=== PATIENT | female | born 1970 | race Caucasian/White ===

== ENCOUNTER → 2017-07-31 | Outpatient (CLI) | payer BC ==
--- NOTE | 2017-07-31 12:59 | Diagnostic Imaging Report ---
INDICATION: Shoulder pain. COMPARISON: None. FINDINGS: Three views of the left shoulder were obtained. There is no fracture, dislocation, or other acute bony abnormality identified. The soft tissues appear unremarkable. No radiopaque foreign bodies identified. The visualized portions of the left lung are clear. IMPRESSION: No acute fractures or dislocations of the left shoulder. Dictated by: Dictated on workstation # [id number]
== END ==
LOC: RAD 12:18
PROVIDERS: ATTEND Internal Medicine
DX: S49.92XA Unspecified injury of left shoulder and upper arm, initial encounter (principal)
CPT/HCPCS: 73030

== ENCOUNTER → 2017-08-13 | Outpatient (CLI) | payer BC ==
--- NOTE | 2017-08-13 12:17 | Diagnostic Imaging Report ---
PROCEDURE: MRI left upper extremity without contrast. TECHNIQUE: A multiplanar/multisequence non contrast-enhanced MRI of the left upper extremity was accomplished. INDICATION: Shoulder pain. COMPARISON: There are no previous MRI examinations available for comparison. The plain film examination of the left shoulder performed on 07/31/2017 failed to show any sign of an acute abnormality. FINDINGS: On the T2 fat-saturated coronal series of this exam, there is no abnormal signal arising from the rotator cuff to suggest a tear. There is some increased signal in the musculotendinous portion of the supraspinatus muscle anteriorly. This may reflect mild tendinosis. There is also a trace amount of fluid in the subacromial and subdeltoid bursa and this does suggest that there is an element of mild inflammation present. The acromioclavicular joint is not hypertrophied and there is no significant narrowing of the outlet for the supraspinous muscle. The biceps tendon and the subscapularis tendon are intact. The labrum is thinned posteriorly and this portion of the labrum may be slightly torn on a degenerative basis. There is no evidence for a joint effusion. There is no abnormal signal arising from the osseous structures to suggest bone edema. IMPRESSION: 1. There is tendinosis of the musculotendinous portion of the supraspinous muscle but there is no sign of a tear of the rotator cuff and the supraspinous muscle is not retracted. The trace amount of fluid in the subacromial and subdeltoid bursa does suggest that there is an element of mild tendinitis present, however. 2. There is no narrowing of the outlet for the supraspinous muscle due to acromioclavicular hypertrophy. 3. The labrum is thinned posteriorly and may be slightly torn on a degenerative basis. 4. There is no acute bony abnormality identified. Dictated by: Dictated on workstation # [id number]
== END ==
LOC: RAD 08:19
PROVIDERS: ATTEND Internal Medicine
DX: M75.92 Shoulder lesion, unspecified, left shoulder (principal)
CPT/HCPCS: 73221

== ENCOUNTER → 2018-02-25 | Outpatient (CLI) | payer BC ==
--- NOTE | 2018-02-25 07:56 | Diagnostic Imaging Report ---
PROCEDURE: US Gallbladder. TECHNIQUE: Multiple real-time grayscale images were obtained over the right upper quadrant in various projections. INDICATION: Epigastric pain. FINDINGS: Liver is echogenic consistent with at least mild degree of fatty infiltration. The gallbladder appeared normal. There is no bile duct dilatation. The right kidney is unobstructed and appeared normal. There was no ascites or fluid collection. IMPRESSION: Echodense fatty liver otherwise negative. Dictated by: Dictated on workstation # [id number]
== END ==
LOC: RAD 06:39
PROVIDERS: ATTEND Internal Medicine
DX: K76.0 Fatty (change of) liver, not elsewhere classified (principal); R10.13 Epigastric pain
CPT/HCPCS: 76705

== ENCOUNTER → 2018-03-11 | Outpatient (CLI) | payer BC ==
[~2018-03-11] MED LIST: CATHETER FLUSH 10 ML SYR IV PRN
--- NOTE | 2018-03-11 13:22 | Diagnostic Imaging Report ---
INDICATION: Right upper quadrant pain. TECHNIQUE: Acquisitions were acquired over the abdomen after the administration of 5.02 mCi of technetium 99m Choletec. The ejection fraction was obtained after the patient ingested 8 ounces of Ensure. FINDINGS: There is homogeneous uptake of isotope throughout the liver. There is significant accumulation within the gallbladder by 30 minutes. There is free flow of activity in the small bowel. The ejection fraction is 36.3%. IMPRESSION: No evidence of cystic duct obstruction. Lower limits of normal ejection fraction of 36%. Dictated by: Dictated on workstation # [id number]
== END ==
LOC: CARD 09:57
PROVIDERS: ATTEND Internal Medicine
DX: R10.11 Right upper quadrant pain (principal)
CPT/HCPCS: 78227

== ENCOUNTER 2018-03-27 13:57 | Outpatient (CLI) | payer BC ==
[~2018-03-27] VITALS: Ht 175.3 cm; Wt 114.8 kg
[2018-03-27] MEDS ORDERED: LEVO175T5 PO (14:45)
[2018-03-27] MEDS ORDERED: CITA20TA9 PO (14:45)
[2018-03-27] MEDS ORDERED: LIRA0.6P3 SQ (14:45)
[2018-03-27] MEDS ORDERED: SIMV20TA3 PO (14:45)
[2018-03-27] MEDS ORDERED: METF-399 PO (14:45)
== END 2018-03-27 14:52 | disposition home or self-care (01) ==
LOC: PREOP 13:57
PROVIDERS: ATTEND Surgery
DX: Z01.818 Encounter for other preprocedural examination (principal)

== ENCOUNTER 2018-04-03 07:42 | Day surgery (SDC) | payer BC ==
[~2018-04-03] VITALS: Ht 175.3 cm; Wt 114.8 kg
[~2018-04-03 07:42] MED LIST changes: -CATHETER FLUSH 10 ML SYR IV PRN; +CITA20TA9 PO; +LEVO175T5 PO; +LIRA0.6P3 SQ; +METF-399 PO; +SIMV20TA3 PO
[2018-04-03] MEDS ORDERED: BUP/EPI 0.5% 1:200,000 (SENSORCAINE) 30 ML VIAL ONE (07:46)
[2018-04-03 07:55] VITALS: BP 130/71
--- NOTE | 2018-04-03 08:10 | Progress Note-Pre Operative ---
Pre-Operative Progress Note H&P Reviewed The H&P was reviewed, patient examined and no changes noted. Date Seen by Provider: Mar 19, 2018 Time Seen by Provider: 11:00 Date H&P Reviewed: Apr 03, 2018 Time H&P Reviewed: 08:09 Pre-Operative Diagnosis: Chronic acalculous cholecystitis NING RICKS MD Apr 03, 2018 08:10
[2018-04-03] MEDS: LACTATED RINGERS 1,000 ML IV PRN ×2 (08:15→10:15)
[2018-04-03 08:25] LABS: BASOPHILS # (AUTO) 0.1 10^3/uL (0.0-0.1); BASOPHILS % (AUTO) 1 % (0-10); EOSINOPHILS # (AUTO) 0.2 10^3/uL (0.0-0.3); EOSINOPHILS % (AUTO) 3 % (0-10); HEMATOCRIT 39 % (35-52); HEMOGLOBIN 12.9 G/DL (11.5-16.0); LYMPHOCYTES # (AUTO) 2.2 X 10^3 (1.0-4.0); LYMPHOCYTES % (AUTO) 34 % (12-44); MEAN CORPUSCULAR HEMOGLOBIN 32 PG (25-34); MEAN CORPUSCULAR HGB CONC 33 G/DL (32-36); MEAN CORPUSCULAR VOLUME 98 FL (80-99); MEAN PLATELET VOLUME 10.3 FL (7.4-10.4); MONOCYTES # (AUTO) 0.5 X 10^3 (0.0-1.0); MONOCYTES % (AUTO) 8 % (0-12); NEUTROPHILS # (AUTO) 3.6 X 10^3 (1.8-7.8); NEUTROPHILS % (AUTO) 54 % (42-75); PLATELET COUNT 228 10^3/uL (130-400); RED BLOOD COUNT 3.99 10^6/uL (4.35-5.85); RED CELL DISTRIBUTION WIDTH 13.4 % (10.0-14.5); WHITE BLOOD COUNT 6.6 10^3/uL (4.3-11.0)
[2018-04-03] MEDS ORDERED: metroNIDAZOLE 500MG/100ML IVPB 100 ML ONE (08:25)
[2018-04-03] MEDS ORDERED: ceFAZolin 2 GM IV Premixed 50 ML ONE (08:25)
[2018-04-03] MEDS ORDERED: ONDANSETRON 4 MG/2 ML (SDV) Z0FRAN ONE (08:27)
[2018-04-03] MEDS ORDERED: proPOfol 200 MG/20 ML (DIPRIVAN) VIAL IV ONE (08:27)
[2018-04-03] MEDS ORDERED: LIDOCAINE PF 2% 5 ML (XYLOCAINE) VIAL ONE (08:27)
[2018-04-03] MEDS ORDERED: DEXAMETHASONE 10 MG/ML (DECADRON) 1 ML VIAL ONE (08:27)
[2018-04-03] MEDS ORDERED: ROCURONIUM 10 MG/ML 5 ML SYRINGE IV ONE (08:27)
[2018-04-03] MEDS ORDERED: SEVOFLURANE (ULTANE) 15 ML INHAL SOLN ONE ×6 (08:27→09:42)
[2018-04-03] MEDS ORDERED: fentaNYL INJECTION 250 MCG/5 ML AMP ONE (08:27)
[2018-04-03] MEDS ORDERED: MIDAZOLAM 2 MG/2 ML (VERSED) VIAL ONE (08:28)
[2018-04-03] MEDS ORDERED: metroNIDAZOLE 500MG/100ML IVPB 100 ML IV ONE (08:30)
[2018-04-03] MEDS ORDERED: ceFAZolin 2 GM IV Premixed 50 ML IV ONE (08:30)
[2018-04-03 08:41] LABS: ALANINE AMINOTRANSFERASE 75 U/L (0-55); ALBUMIN 4.3 GM/DL (3.2-4.5); ALKALINE PHOSPHATASE 81 U/L (40-136); BILIRUBIN,TOTAL 0.5 MG/DL (0.1-1.0); BUN/CREATININE RATIO 16; CALCIUM 9.8 MG/DL (8.5-10.1); CARBON DIOXIDE 24 MMOL/L (21-32); CHLORIDE 104 MMOL/L (98-107); CREATININE SERUM 0.91 MG/DL (0.60-1.30); GFR ESTIMATED > 60; GLUCOSE 278 MG/DL (70-105); POTASSIUM 4.1 MMOL/L (3.6-5.0); SODIUM 138 MMOL/L (135-145); TOTAL PROTEIN 7.3 GM/DL (6.4-8.2)
[2018-04-03] MEDS ORDERED: NEOSTIGMINE 1 MG/ML 5 ML SYRINGE ONE (09:31)
[2018-04-03] MEDS ORDERED: GLYCOPYRROLATE 0.2 MG/ML (ROBINUL) 2 ML VIAL ONE ×2 (09:31→09:35)
--- NOTE | 2018-04-03 09:47 | Operative Report ---
Operative Report Date of Procedure/Surgery Apr 03, 2018 Surgeon (s) NING RICKS MD Sales Manager [place] (s): Ashley Donato ( Med Student III) Post-Operative Diagnosis Same Procedure Performed Robotic-assisted cholecystectomy Description of Procedure Anesthesia Type: General Estimated blood loss (mL): Minimal Specimen(s) collected/removed Gallbladder Description of the Procedure Indication for the procedure: This lady presented with typical biliary colic due to chronic, acalculous cholecystitis. Therefore, it was felt reasonable to offer cholecystectomy. Informed consent was obtained after reviewing the operative details and complications of wound infection and bile leak. Description of procedure: She was placed supine on the operating table and general anesthesia induced. 2 g of Ancef and 500 mg of Flagyl were administered intravenously as prophylaxis against wound infection. Sequential compression devices were placed around her legs, to minimize the risk of venous thrombosis. Abdomen was prepared and draped in the usual sterile manner. A supraumbilical incision was made and pneumoperitoneum established using a Veress needle. A 12 mm trocar was placed and anatomy visualized using a high definition, 3- dimensional left, associated with da Rafael system. Under direct view, I placed an 8 mm trocar over each side of the abdomen, followed by a 5 mm trocar over the left quadrant of the abdomen. The patient was then turned into reverse Trendelenburg position right side tilted up. The robotic system was then docked in place. The fundus of the gallbladder was retracted cephalad and infundibulum grasped with Cadiere forceps. Thickened tissue around the neck of the gallbladder was incised using the hook cautery, delineating the cystic duct and artery. Both were divided between locking clips. Cholecystectomy was then completed using the hook heart. The gallbladder was then placed in an Endo Catch bag and removed via the supraumbilical trocar site. The fascia over this incision was closed using #1 Vicryl using the Alfred Marie device, under direct view. Skin incisions were closed using 4-0 Vicryl, in a subcuticular fashion. 0.5 percent Marcaine is infiltrated along the incisions both preemptively and at the conclusion of the operation. She tolerated the procedure well, was extubated in the operating room and taken to the recovery room in a stable condition. Findings of the Procedure See operative report Allergies and Home Medications Allergies Coded Allergies: No Known Drug Allergies (Unverified , 03/27/18) Home Medications Citalopram Hydrobromide 20 Mg Tablet, 20 MG PO DAILY, (Reported) Levothyroxine Sodium 175 Mcg Tablet, 175 MCG PO DAILY, (Reported) Liraglutide 0.6 Mg/0.1 Ml Pen.injctr, 1.8 MG SQ DAILY, (Reported) Metformin HCl 1,000 Mg Tablet, 1,000 MG PO DAILY, (Reported) Simvastatin 20 Mg Tablet, 20 MG PO HS, (Reported) Patient Home Medication List Home Medication List Reviewed: Yes NING RIKCS MD Apr 03, 2018 09:47
[2018-04-03] MEDS ORDERED: ACHD5005 PO (09:48)
--- NOTE | 2018-04-03 09:49 | Discharge Inst-Simple/Standard ---
Discharge Inst-Standard Discharge Medications New, Converted or Re-Newed RX: RX on Chart Patient Instructions/Follow Up Plan of Care/Instructions/FU: Band-Aids off in 48 hours. Incentive spirometry. Follow-up in 3 weeks Activity as Tolerated: Yes Discharge Diet: No Restrictions NING RICKS MD Apr 03, 2018 09:49
[2018-04-03] MEDS ORDERED: LACTATED RINGERS 1,000 ML IV ONE (10:08)
[2018-04-03] MEDS ORDERED: fentaNYL INJECTION 100 MCG/2 ML AMP ONE (10:13)
[2018-04-03] MEDS ORDERED: KETOROLAC 30 MG/ML VIAL ONE (10:13)
[2018-04-03] MEDS ORDERED: morphine INJ 10 MG/ML 1ML (SYR OR VIAL) IVP ONE (10:15)
[2018-04-03] MEDS ORDERED: HYDROmorphone 2 MG/ML VIAL (DILAUDID) IV ONE (10:15)
[2018-04-03] MEDS ORDERED: PROMETHAZINE INJ 25 MG/ML (PHENERGAN) AMP IVP ONE (10:15)
[2018-04-03] MEDS ORDERED: ONDANSETRON 4 MG/2 ML (SDV) Z0FRAN IVP PRN (10:15)
[2018-04-03] MEDS ORDERED: fentaNYL INJECTION 100 MCG/2 ML AMP IVP ONE (10:15)
[2018-04-03] MEDS ORDERED: KETOROLAC 30 MG/ML VIAL IVP ONE (10:15)
[2018-04-03] MEDS ORDERED: MEPERIDINE (DEMEROL) INJ 50 MG/ML IVP ONE (10:15)
--- NOTE | 2018-04-03 10:27 | Anesthesia-General Post-Op ---
General Patient Condition Mental Status/LOC: Same as Preop Cardiovascular: Satisfactory Nausea/Vomiting: Absent Respiratory: Satisfactory Pain: Controlled Complications: Absent Post Op Complications Complications None Follow Up Care/Instructions Patient Instructions None needed. Anesthesia/Patient Condition Patient Condition Patient is doing well, no complaints, stable vital signs, no apparent adverse anesthesia problems. No complications reported per nursing. D/C home per [facility] [place] Criteria: Yes TOI WAGNER CRNA Apr 03, 2018 10:27
[2018-04-03 11:15] VITALS: BP 146/83
[2018-04-03 11:20] VITALS: BP 146/83
[2018-04-03 11:45] VITALS: BP 111/65
[2018-04-03] MEDS ORDERED: HYDROcodone/APAP 5 MG/325 MG (LORTAB) TAB PO ONE (12:00)
[2018-04-03 12:15] VITALS: BP 119/76
== END 2018-04-03 13:25 | disposition home or self-care (01) ==
LOC: SDC 07:42
PROVIDERS: ATTEND Surgery
DX: K81.1 Chronic cholecystitis (principal); Z11.2 Encounter for screening for other bacterial diseases; E78.5 Hyperlipidemia, unspecified; E11.9 Type 2 diabetes mellitus without complications; E66.01 Morbid (severe) obesity due to excess calories; Z68.37 Body mass index [BMI] 37.0-37.9, adult; Z79.899 Other long term (current) drug therapy; Z79.84 Long term (current) use of oral hypoglycemic drugs
CPT/HCPCS: 36415; 80053; 82962; 84703; 85025; 87081; 88304

== ENCOUNTER → 2020-12-14 | Outpatient (CLI) | payer BC ==
[~2020-12-14] MED LIST changes: +ACHD5005 PO; +SIMV20TA26 PO; -SIMV20TA3 PO
--- NOTE | 2020-12-14 12:29 | Diagnostic Imaging Report ---
INDICATION: Routine screening. COMPARISON: No prior mammograms are available for comparison. This is a baseline study. TECHNIQUE: 2D and 3D bilateral screening mammography was performed with CAD. FINDINGS: Both breasts are heterogeneously dense, limiting the sensitivity of mammography. There are benign calcifications in both breasts. No mass or malignant appearing microcalcifications are seen. The axillae are unremarkable. IMPRESSION: No mammographic features suspicious for malignancy are identified. ACR BI-RADS Category 2: Benign findings. Result letter will be mailed to the patient. Note: At least 10% of breast cancer is not imaged by mammography. Dictated by: Dictated on workstation # [id number]
== END ==
LOC: RAD 11:00
PROVIDERS: ATTEND Internal Medicine
DX: Z12.31 Encounter for screening mammogram for malignant neoplasm of breast (principal)
CPT/HCPCS: 77063; 77067